=== PATIENT | male | born 1975 | race Caucasian/White ===

== ENCOUNTER 2017-06-28 17:30 | Outpatient (CLI) | payer OTHER | END 2017-06-28 17:31 | disposition home or self-care (01) | LOC: SLEEPLAB 17:30 | PROVIDERS: ATTEND Family Medicine | DX: G47.33 Obstructive sleep apnea (adult) (pediatric) (principal); E66.9 Obesity, unspecified; I10 Essential (primary) hypertension | CPT/HCPCS: 95806 ==